=== PATIENT | female | born 1970 | race Caucasian/White ===

== ENCOUNTER 2019-09-06 11:38 | Outpatient (CLI) | payer OTHER, SELFPAY ==
--- NOTE | ~2019-09-06 | MM_ITS ---
EXAMINATION: MM screening [facility] BI w og HISTORY: Screening mammogram TECHNIQUE: Craniocaudal and mediolateral oblique 3-D tomosynthesis images were obtained and synthetic 2-D images were generated. CAD analysis was submitted and interpreted. COMPARISON: 05/22/2018, 01/09/2017, 08/24/2015, 08/17/2015 BREAST PARENCHYMAL COMPOSITION: There are scattered areas of fibroglandular density. FINDINGS: There is no evidence of suspicious mass, calcification, or architectural distortion to sugg est malignancy in either breast. There has been no suspicious interval change. IMPRESSION: 1. No mammographic evidence of malignancy. 2. Recommend routine screening mammography in one year. BI-RADS Category 1: Negative Reviewed, dictated and finalized at location A.
== END 2019-09-06 11:39 | disposition home or self-care (01) ==
LOC: ANHIMG 11:42
PROVIDERS: PCP Nurse Practitioner Adult Health; Visit Provider Nurse Practitioner Adult Health
DX: Z12.31 Encounter for screening mammogram for malignant neoplasm of breast (principal)
CPT/HCPCS: 77063; 77067

== ENCOUNTER 2020-01-20 12:58 | Outpatient (CLI) | payer OTHER, SELFPAY ==
--- NOTE | ~2020-01-20 | XR_ITS ---
EXAMINATION: XR wrist LT min 3V EXAM DATE: 01/20/2020 13:20 INDICATION: Initial encounter following injury, with pain of the left wrist. TECHNIQUE: Left wrist frontal, frontal with ulnar deviation, oblique and lateral projections obtained and reviewed. There is no prior study for comparison. FINDINGS: Left wrist scapholunate joint space is maintained. There are no acute left wrist fractures or dislocations identified. There is no subcutaneous gas. The soft tissue is unremarkable. There are no radiopaque foreign bodies. IMPRESSION: No acute osseous findings. Reviewed, dictated and finalized at location A. IMPRESSION: No acute osseous findings.
== END 2020-01-20 12:59 | disposition home or self-care (01) ==
PROVIDERS: PCP Nurse Practitioner Adult Health; Visit Provider Nurse Practitioner Adult Health
DX: S69.90XA Unspecified injury of unspecified wrist, hand and finger(s), initial encounter (principal); X58.XXXA Exposure to other specified factors, initial encounter
CPT/HCPCS: 73110

== ENCOUNTER 2020-08-05 07:44 | Outpatient (CLI) | payer OTHER, SELFPAY ==
[2020-08-05 08:35] LABS: Basophils Percent Auto 0.5 % (0.2-1.2); Eosinophils Absolute Auto 0.1 K/mm3 (0-0.3); Eosinophils Percent Auto 1.3 % (0-4.4); Immature Granulocyte Absolute 0.03 K/mm3 (0.00-0.031); Immature Granulocyte Percent A 0.4 % (0-0.5); Lymphocytes Absolute Auto 2.58 K/mm3 (0.9-3.2); Mean Corpuscular HGB Conc 34.1 g/dl (32-36); Mean Corpuscular Volume 87.8 fl (80-100); Mean Platelet Volume 9.9 fl (7.4-10.4); Monocytes Absolute Auto 0.6 K/mm3 (0.1-0.6); Monocytes Percent Auto 8.2 % (2.6-8.5); Neutrophils Absolute Auto 4.4 K/mm3 (1.3-6.7); Neutrophils Percent Auto 56.6 % (45.5-73.1); Platelet Count Result 236 k/mm3 (150-375); Red Blood Count 4.67 M/mm3 (4.2-5.4); Red Cell Distribution Width 12.6 % (11.5-14.5); White Blood Count 7.8 K/mm3 (4.5-10.0)
[2020-08-05 08:46] LABS: Alanine Aminotransferase 26 U/L (4-35); Albumin Level 4.1 g/dL (3.5-5.1); Alkaline Phosphatase 65 U/L (38-126); Anion Gap 6 mmol/L (8-16); Aspartate Amino Transferase 29 U/L (14-36); Bilirubin,Total 1.3 mg/dL (0.2-1.3); Blood Urea Nitrogen 13 mg/dL (7-17); Calcium 9.1 mg/dL (8.4-10.2); Carbon Dioxide 27 mmol/L (22-30); Chloride 105 mmol/L (98-107); Cholesterol 220 mg/dL (0-200); Estimated Glomerular Filt Rate > 60; Glucose 94 mg/dL (65-105); HDL Direct 51 mg/dL; Potassium 4.4 mmol/L (3.4-5.0); Sodium 138 mmol/L (137-145); Triglycerides 159 mg/dL (<150)
[2020-08-05 08:58] LABS: LDL Cholesterol Direct 144 mg/dL
== END 2020-08-05 07:45 | disposition home or self-care (01) ==
PROVIDERS: PCP Nurse Practitioner Adult Health; Visit Provider Nurse Practitioner Adult Health
DX: E03.9 Hypothyroidism, unspecified (principal); Z13.9 Encounter for screening, unspecified
CPT/HCPCS: 36415; 80053; 80061; 84443; 85025

== ENCOUNTER 2020-10-19 10:46 | Outpatient (CLI) | payer OTHER, SELFPAY ==
--- NOTE | ~2020-10-19 | MM_ITS ---
EXAMINATION: MM screening [facility] BI w og HISTORY: Screening mammogram TECHNIQUE: Craniocaudal and mediolateral oblique 3-D tomosynthesis images were obtained and synthetic 2-D images were generated. CAD analysis was submitted and interpreted. COMPARISON: 09/06/2019, , 01/09/2017 bilateral digital screening mammogram examinations BREAST PARENCHYMAL COMPOSITION: There are scattered areas of fibroglandular density. FINDINGS: There is a biopsy marker on the left; history of prior benign left breast biopsy in 2013. Stable fibroglandular asymmetry since prior examinations. There is no evidence of suspicious mass, ca lcification, or architectural distortion to suggest malignancy in either breast. There has been no high spicious interval change. IMPRESSION: 1. No mammographic evidence of malignancy. 2. Recommend routine screening mammography in one year. BI-RADS Category 2: Benign finding(s). Reviewed, dictated and finalized at location A.
== END 2020-10-19 10:47 | disposition home or self-care (01) ==
LOC: ANHIMG 10:49
PROVIDERS: PCP Nurse Practitioner Adult Health; Visit Provider Nurse Practitioner Adult Health
DX: Z12.31 Encounter for screening mammogram for malignant neoplasm of breast (principal)
CPT/HCPCS: 77063; 77067

== ENCOUNTER 2021-07-30 07:10 | Outpatient (CLI) | payer OTHER, SELFPAY ==
[2021-07-30 07:38] LABS: Basophils Percent Auto 0.4 % (0.2-1.2); Eosinophils Absolute Auto 0.1 K/mm3 (0-0.3); Eosinophils Percent Auto 1.2 % (0-4.4); Hematocrit 43.5 % (37.0-47.0); Hemoglobin 14.7 g/dL (12.0-15.0); Immature Granulocyte Absolute 0.04 K/mm3 (0.00-0.031); Immature Granulocyte Percent A 0.6 % (0-0.5); Lymphocytes Absolute Auto 2.31 K/mm3 (0.9-3.2); Lymphocytes Percent Auto 33.4 % (18.3-44.2); Mean Corpuscular HGB Conc 33.8 g/dl (32-36); Mean Corpuscular Hemoglobin 29.7 pg (26-34); Mean Corpuscular Volume 87.9 fl (80-100); Mean Platelet Volume 9.9 fl (7.4-10.4); Monocytes Absolute Auto 0.6 K/mm3 (0.1-0.6); Monocytes Percent Auto 8.2 % (2.6-8.5); Neutrophils Absolute Auto 3.9 K/mm3 (1.3-6.7); Neutrophils Percent Auto 56.2 % (45.5-73.1); Platelet Count Result 274 k/mm3 (150-375); Red Blood Count 4.95 M/mm3 (4.2-5.4); Red Cell Distribution Width 12.4 % (11.5-14.5); White Blood Count 6.9 K/mm3 (4.5-10.0)
[2021-07-30 09:36] LABS: Alanine Aminotransferase 25 U/L (4-35); Albumin Level 4.3 g/dL (3.5-5.1); Alkaline Phosphatase 68 U/L (38-126); Anion Gap 2 mmol/L (8-16); Aspartate Amino Transferase 28 U/L (14-36); Bilirubin,Total 1.6 mg/dL (0.2-1.3); Blood Urea Nitrogen 10 mg/dL (7-17); Calcium 9.3 mg/dL (8.4-10.2); Carbon Dioxide 30 mmol/L (22-30); Chloride 105 mmol/L (98-107); Cholesterol 211 mg/dL (0-200); Estimated Glomerular Filt Rate > 60; Glucose 99 mg/dL (65-110); HDL Direct 44 mg/dL; Potassium 4.5 mmol/L (3.4-5.0); Sodium 137 mmol/L (137-145); Triglycerides 211 mg/dL (<150)
[2021-07-30 09:47] LABS: LDL Cholesterol Direct 129 mg/dL
== END 2021-07-30 07:11 | disposition home or self-care (01) ==
LOC: ANHLAB 07:13
PROVIDERS: PCP Nurse Practitioner Adult Health; Visit Provider Nurse Practitioner Adult Health
DX: Z13.9 Encounter for screening, unspecified (principal)
CPT/HCPCS: 36415; 80053; 80061; 82607; 82746; 84443; 85025

== ENCOUNTER 2022-05-17 07:48 | Outpatient (CLI) | payer OTHER, SELFPAY ==
--- NOTE | ~2022-05-17 | MM_ITS ---
EXAMINATION: MM screening [facility] BI w og HISTORY: Screening TECHNIQUE: Craniocaudal and mediolateral oblique 3-D tomosynthesis images were obtained and synthetic 2-D images were generated. CAD analysis was submitted and interpreted. COMPARISON: Comparison to multiple prior studies sequentially, with oldest reviewed study dated 08/17. BREAST PARENCHYMAL COMPOSITION: Breast composed of scattered areas of fibroglandular density FINDINGS: There is no evidence of suspicious mass, calcification, or architectural distortion to sugg est malignancy in either breast. There has been no suspicious interval change. IMPRESSION: 1. No mammographic evidence of malignancy. 2. Recommend routine screening mammography in one year. BI-RADS Category 1: Negative Reviewed, dictated and finalized at location A. 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
== END 2022-05-17 07:49 | disposition home or self-care (01) ==
PROVIDERS: PCP Nurse Practitioner Adult Health; Visit Provider Nurse Practitioner Adult Health
DX: Z12.31 Encounter for screening mammogram for malignant neoplasm of breast (principal)
CPT/HCPCS: 77063; 77067

== ENCOUNTER 2022-08-09 07:26 | Outpatient (CLI) | payer OTHER, SELFPAY ==
[2022-08-09 10:00] LABS: Alanine Aminotransferase 27 U/L (6-35); Alkaline Phosphatase 58 U/L (38-126); Anion Gap 3 mmol/L (8-16); Aspartate Amino Transferase 25 U/L (14-36); Bilirubin,Total 1.1 mg/dL (0.2-1.3); Blood Urea Nitrogen 17 mg/dL (7-17); Calcium 8.8 mg/dL (8.4-10.2); Carbon Dioxide 30 mmol/L (22-30); Chloride 106 mmol/L (98-107); Cholesterol 200 mg/dL (0-200); Estimated Glomerular Filt Rate 59; Glucose 89 mg/dL (65-110); HDL Direct 47 mg/dL; Potassium 4.7 mmol/L (3.4-5.0); Sodium 139 mmol/L (137-145); Triglycerides 100 mg/dL (<150)
[2022-08-09 10:11] LABS: LDL Cholesterol Direct 106 mg/dL
== END 2022-08-09 07:27 | disposition home or self-care (01) ==
PROVIDERS: PCP Family Medicine; Visit Provider Family Medicine
DX: E03.9 Hypothyroidism, unspecified (principal); Z13.220 Encounter for screening for lipoid disorders
CPT/HCPCS: 36415; 80053; 80061; 84443

== ENCOUNTER 2023-10-15 09:38 | Outpatient (CLI) | payer OTHER, SELFPAY ==
[2023-10-15 19:22] LABS: Hemoglobin 15.3 g/dL (12.0-15.0); Mean Corpuscular HGB Conc 31.9 g/dl (32-36); Mean Corpuscular Hemoglobin 29.1 pg (26-34); Mean Corpuscular Volume 91.3 fl (80-100); Mean Platelet Volume 10.3 fl (7.4-10.4); Platelet Count Result 261 k/mm3 (150-375); Red Blood Count 5.26 M/mm3 (4.2-5.4); White Blood Count 6.3 K/mm3 (4.5-10.0)
[2023-10-15 19:52] LABS: Vitamin D 25 Hydroxy 18.4 ng/mL
[2023-10-15 20:25] LABS: Alanine Aminotransferase 23 U/L (6-35); Albumin Level 4.5 g/dL (3.5-5.1); Alkaline Phosphatase 63 U/L (38-126); Anion Gap 6 mmol/L (4-12); Aspartate Amino Transferase 65 U/L (14-36); Bilirubin,Total 1.3 mg/dL (0.2-1.3); Blood Urea Nitrogen 16 mg/dL (7-17); Calcium 9.4 mg/dL (8.4-10.2); Carbon Dioxide 25 mmol/L (22-30); Chloride 105 mmol/L (98-107); Cholesterol 218 mg/dL (0-200); Estimated Glomerular Filt Rate > 60; Glucose 80 mg/dL (65-110); HDL Direct 62 mg/dL; Potassium 4.5 mmol/L (3.4-5.0); Sodium 136 mmol/L (137-145); Triglycerides 143 mg/dL (<150)
[2023-10-15 20:36] LABS: LDL Cholesterol Direct 127 mg/dL
== END 2023-10-15 09:39 | disposition home or self-care (01) ==
PROVIDERS: PCP Nurse Practitioner Adult Health; Visit Provider Nurse Practitioner Adult Health
DX: E03.9 Hypothyroidism, unspecified (principal); E55.9 Vitamin D deficiency, unspecified; Z13.9 Encounter for screening, unspecified
CPT/HCPCS: 36415; 80053; 80061; 82306; 84443; 85027

== ENCOUNTER 2023-10-25 15:10 | Outpatient (CLI) | payer OTHER, SELFPAY ==
--- NOTE | ~2023-10-25 | US_ITS ---
EXAMINATION: US pelvic complete DATE: 10/25/2023 15:46 INDICATION: Excessive and frequent menstruation. TECHNIQUE: Multiple transabdominal sonographic images of the pelvis were obtained. COMPARISON: None. FINDINGS: The uterus measures 9.5 x 5.4 x 6.4 cm. There is no free fluid in the pelvis. The endometrial complex measures 6 mm in thickness. The right ovary measures 5.2 x 4.0 x 4.3 cm. There is a 3.0 cm cyst in r ight ovary. The left ovary measures 3.4 x 1.9 x 3.0 cm. There is normal vascular flow in the ovaries. IMPRESSION: 1. 3.0 cm cyst in right ovary, likely a follicular cyst. Reviewed, dictated and finalized at location E.
== END 2023-10-25 15:11 | disposition home or self-care (01) ==
LOC: ANHIMG 15:12
PROVIDERS: PCP Nurse Practitioner Adult Health; Visit Provider Nurse Practitioner Adult Health
DX: N92.0 Excessive and frequent menstruation with regular cycle (principal); N83.01 Follicular cyst of right ovary
CPT/HCPCS: 76856

== ENCOUNTER 2024-01-31 01:02 | Day surgery (SDC) | payer OTHER, SELFPAY ==
[2024-01-18 10:26] VITALS: BMI 34.8
[2024-01-31 06:52] VITALS: BP 129/68; PULSE 63; RESP 18; TEMP 36.1; O2SAT 98; BMI 35.6
[2024-01-31] MEDS: LACTATED RINGERS 1,000 ML 150 ML IV CONT (07:06)
--- NOTE | 2024-01-31 07:48 | PM.IMHP ---
H&P: HPI History of Present Illness Date/Time: 01/31/24 07:48 Chief Complaint: screening for colorectal cancer Narrative: this is a 53-year-old woman who presents for her 1st colonoscopy. She denies any family history of colon cancer. She has noted blood a couple times when wiping but no blood mixed in with the stool. She has had an appendectomy in the past but denies any other abdominal surgeries. Review of Systems Review of Systems: All systems reviewed & are unremarkable except as noted in HPI and below Constitutional: Constitutional: Denies chills, Denies fever(s), Denies headache(s) and Denies weight loss Eyes: Eyes: Denies change in vision ENT: Denies dizziness, Denies headache(s), Denies neck mass and Denies throat swelling Cardiovascular: Cardiovascular: Denies chest pain, Denies lightheadedness and Denies dyspnea Respiratory: Respiratory: Denies cough, Denies dyspnea and Denies wheezing Gastrointestinal: Gastrointestinal: Denies abdominal pain, Denies change in bowel habits, Denies nausea and Denies vomiting Genitourinary: Genitourinary: Denies hematuria and Denies dysuria Musculoskeletal: Musculoskeletal: Reports as per HPI Integumentary/Breasts: Skin/Breast: Reports as per HPI Neurologic: Denies dizziness and Denies headache(s) Allergic/Immunologic: Allergic/Immunologic: Denies throat swelling and Denies wheezing PMF Past Medical History Medical History Headache History of torn meniscus of left knee Vitamin D deficiency Surgical History Surgical History (Updated 11/05/23 @ 09:03 by Julieta Adam CMA) H/O knee surgery History of appendectomy Family History Family History Mother Thyroid condition Heart problem Sibling Diabetes mellitus Thyroid condition Social History Social History (Updated 11/05/23 @ 09:04 by Julieta Adam CMA) Smoking status: Never smoker Alcohol intake: never Alcohol use details: social Substance use: never Substance use type: does not use Do You Feel Safe in your Home?: Yes Lack of Transportation: No Lack of Food: Never True Current Housing: I Have Housing Concerned About Future Housing: No Difficulty Paying Gas/Electric Bills: No Difficulty Paying for Meds: No Currently Unemployed: No Education: Bachelor's Degree Difficulty w/ Childcare or Family Care: No Living arrangements: with family Occupation/Education: occupation Gender identity (if verbalized by the patient): Female Spiritual care concerns: No Meds Home Medications and Allergies Home Medications Medication Instructions Recorded Confirmed Type levothyroxine 75 mcg tablet 75 mcg PO DAILY 10/04/21 01/31/24 History multivitamin 1 tablet PO DAILY 10/15/23 01/31/24 History rizatriptan 10 mg disintegrating 10 mg PO PRN PRN Migraine Headache 10/15/23 01/31/24 History tablet vitamin B complex 1 cap PO DAILY 10/15/23 01/31/24 History cholecalciferol (vitamin D3) 1,250 1,250 mcg PO WEEKLY #12 caps 10/16/23 01/31/24 Rx mcg (50,000 unit) capsule norethindrone (contraceptive) 0.35 See Rx Instructions .Route 01/24/24 01/31/24 Rx mg tablet .COMPLEX #84 tabs Allergies Allergy/AdvReac Type Severity Reaction Status Date / Time Sulfa (Sulfonamide Allergy Unknown HIVES Verified 01/31/24 06:51 Antibiotics) Flu Vaccine Allergy Unknown Unknown Uncoded 01/31/24 06:51 Vital Signs Vital Signs - 24 hr 01/31/24 06:52 Temperature 36.1 C L Pulse Rate 63 Respiratory Rate 18 Blood Pressure 129/68 Pulse Oximetry 98 Oxygen Delivery Room Air Exam Const: General: no acute distress and alert Orientation/consciousness: patient oriented x3 HENMT: Head: normocephalic and atraumatic Ears: hearing grossly normal bilaterally Face/Nose/Sinus: Normal nares present Mouth: Yes Normal oral and palatal mucosa present Eyes: Periorbital:
--- NOTE | 2024-01-31 07:51 | WPDANESEPPF ---
Anes - Initial Pre Proc Eval Procedure: Operation Date: 01/31/24 08:00 Proposed Procedures p Screening Colonoscopy - Javad Mason DO Date/Time: 01/31/24 07:51 Surgeon: Javad Mason DO Pre Op Diagnosis: Neoplasm Screening Patient Data Age: 53 Gender: F Height: 1.73 m Weight: 106.3 kg Last Vital Signs Temp 97.0 F L 01/31/24 06:52 Pulse 63 01/31/24 06:52 Resp 18 01/31/24 06:52 BP 129/68 01/31/24 06:52 Pulse Ox 98 01/31/24 06:52 O2 Del Method Room Air 01/31/24 06:52 Allergies Allergy/AdvReac Type Severity Reaction Status Date / Time Sulfa (Sulfonamide Allergy Unknown HIVES Verified 01/31/24 06:51 Antibiotics) Flu Vaccine Allergy Unknown Unknown Uncoded 01/31/24 06:51 Home Medications Medication Instructions Recorded Confirmed Type levothyroxine 75 mcg tablet 75 mcg PO DAILY 10/04/21 01/31/24 History multivitamin 1 tablet PO DAILY 10/15/23 01/31/24 History rizatriptan 10 mg disintegrating 10 mg PO PRN PRN Migraine Headache 10/15/23 01/31/24 History tablet vitamin B complex 1 cap PO DAILY 10/15/23 01/31/24 History cholecalciferol (vitamin D3) 1,250 1,250 mcg PO WEEKLY #12 caps 10/16/23 01/31/24 Rx mcg (50,000 unit) capsule norethindrone (contraceptive) 0.35 See Rx Instructions .Route 01/24/24 01/31/24 Rx mg tablet .COMPLEX #84 tabs Patient hx anesthesia problems: none Family hx anesthesia problems: none Results Review: All pre-operative results and documents have been reviewed as part of the pre-operative evaluation. [facility] Past Medical History Medical History Headache History of torn meniscus of left knee Vitamin D deficiency Surgical History Surgical History (Updated 11/05/23 @ 09:03 by Julieta Adam CMA) H/O knee surgery History of appendectomy Family History Family History Mother Thyroid condition Heart problem Sibling Diabetes mellitus Thyroid condition Social History Social History (Updated 11/05/23 @ 09:04 by Julieta Adam CMA) Smoking status: Never smoker Alcohol intake: never Alcohol use details: social Substance use: never Substance use type: does not use Do You Feel Safe in your Home?: Yes Lack of Transportation: No Lack of Food: Never True Current Housing: I Have Housing Concerned About Future Housing: No Difficulty Paying Gas/Electric Bills: No Difficulty Paying for Meds: No Currently Unemployed: No Education: Bachelor's Degree Difficulty w/ Childcare or Family Care: No Living arrangements: with family Occupation/Education: occupation Gender identity (if verbalized by the patient): Female Spiritual care concerns: No Anes - Eval Final PreProcedure Day of Procedure 01/31/24 07:51 Patient weight: obese Heart: regular rate and rhythm Lungs: clear to auscultation Airway: Mallampati scale class II Neurological: alert and oriented Last oral intake: >/= 8 hours ASA classification: II Emergent: no Anesthetic plan: proceed Anesthesia type and monitoring: general GIVS and standard monitoring Results Review: All pre-operative results and documents have been reviewed as part of the pre-operative evaluation. Informed Consent: The patient's anesthetic plan and its attendant risks and benefits were discussed with the patient/family/POA. Questions were solicited and answers provided to the satisfaction of the patient/family/POA.
[2024-01-31 08:17] VITALS: BP 106/65; PULSE 61; RESP 22; O2SAT 97
[2024-01-31 08:18] LABS: BEDSIDEPREGUCG Negative
[2024-01-31 08:27] VITALS: BP 111/72; PULSE 64; RESP 18; O2SAT 100
[2024-01-31 08:37] VITALS: BP 118/81; PULSE 60; RESP 20; O2SAT 100
== END 2024-01-31 08:45 | disposition home or self-care (01) ==
PROVIDERS: PCP Nurse Practitioner Adult Health; Visit Provider Surgery
PROC: 0DJD8ZZ Inspection of Lower Intestinal Tract, Via Natural or Artificial Opening Endoscopic (ICD-10-PCS; CPT 45378; principal; 2024-01-31 08:00)
DX: Z12.11 Encounter for screening for malignant neoplasm of colon (principal); E55.9 Vitamin D deficiency, unspecified; E66.9 Obesity, unspecified; Z68.35 Body mass index [BMI] 35.0-35.9, adult; Z98.890 Other specified postprocedural states; Z82.49 Family history of ischemic heart disease and other diseases of the circulatory system
CPT/HCPCS: 45378; J2704; J7120

== ENCOUNTER 2024-04-10 15:44 | Outpatient (CLI) | payer OTHER, SELFPAY ==
--- NOTE | ~2024-04-10 | MM_ITS ---
EXAMINATION: MM screening [facility] BI w og HISTORY: Screening TECHNIQUE: Craniocaudal and mediolateral oblique 3-D tomosynthesis images were obtained and synthetic 2-D images were generated. CAD analysis was submitted and interpreted. COMPARISON: Examination was compared with multiple prior studies, performed most recently on 05/14/20 and dating back to 09/06/2019 BREAST PARENCHYMAL COMPOSITION: There are scattered areas of fibroglandular density. FINDINGS: Microclip within the lower inner left breast, consistent with patient's history. Stable parenchymal pattern without suspicious microcalcifications, architectural distortion, discrete masses or significant asymmetry. IMPRESSION: 1. No mammographic evidence of malignancy. 2. Recommend routine screening mammography in one year. BI-RADS Category 2: Benign finding(s). Reviewed, dictated and finalized at location A.
== END 2024-04-10 15:45 | disposition home or self-care (01) ==
LOC: ANHIMG 15:45
PROVIDERS: PCP Nurse Practitioner Adult Health; Visit Provider Nurse Practitioner Adult Health
DX: Z12.31 Encounter for screening mammogram for malignant neoplasm of breast (principal)
CPT/HCPCS: 77063; 77067

== ENCOUNTER 2024-04-14 14:41 | Outpatient (CLI) | payer OTHER, SELFPAY ==
--- NOTE | ~2024-04-14 | XR_ITS ---
EXAMINATION: XR hip RT min 2V DATE: 04/14/2024 14:59 INDICATION: Right hip pain. TECHNIQUE: 2 views of right hip were obtained. COMPARISON: None. FINDINGS: Alignment is normal. No fracture. Right hip joint space is normal. IMPRESSION: 1. Normal right hip. Reviewed, dictated and finalized at location A. IMPRESSION: 1. Normal right hip.
== END 2024-04-14 14:42 | disposition home or self-care (01) ==
PROVIDERS: PCP Nurse Practitioner Adult Health; Visit Provider Nurse Practitioner Adult Health
DX: M25.551 Pain in right hip (principal); E03.9 Hypothyroidism, unspecified
CPT/HCPCS: 36415; 73502; 84443

== ENCOUNTER 2024-07-21 15:30 | Outpatient (RCR) | payer OTHER, SELFPAY ==
--- NOTE | 2024-05-23 16:23 | OPREHPOC ---
Outpatient Therapy Plan of Care This is a Multidisciplinary Plan of Care that may contain components documented by all disciplines (PT, OT, and ST.) PT Problem 1 PT Problem #1 Knowledge Deficit PT Goal 1 Goal / Goal Update *indep with HEP Target Visit 6 PT Problem 2 PT Problem #2 Pain PT Goal 1 Goal / Goal Update 1* pt report pain rating at worst of 4/10 Target Visit 6 PT Problem 3 PT Problem #3 Impaired Flexibility PT Goal 1 Goal / Goal Update increase flexibility of R hip to improve symmetry R/L balance with activity 1* anterior hip/quad length with prone knee flexion 130' 2* prone hip IR, with knee flexion 90', 55' Target Visit 6 PT Problem 4 PT Problem #4 Impaired Strength PT Goal 1 Goal / Goal Update further assessment of her running posture and positioning Target Visit 6
--- NOTE | 2024-05-23 16:23 | PTOPEVAL1 ---
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 Reports an increase with running, but she is not doing any more than she had been doing with fitness activity. LE Functional scale rating of 10% limit in activity. She is frustrated with the R hip pain and very motivated with her fitness activities. With the evaluation: R hip pain with supine hip flexion and ER motions at end range; tightness over R anterior hip/quad and prone IR motions; no tenderness with palpation; hip testing negative; decrease pain with supine R leg pull. Skilled PT services are indicated for treatment of R hip--? impingement syndrome or overuse syndrome ; modalities PRN for pain, therapeutic exercises to increase flexibility and stability to R hip joint with education for HEP and pain control. Plan of Care Interventions Electrical Stimulation,Hot Pack/Cold Pack,Manual Therapy,Neuro Re-education,Patient Education,Therapeutic Activities,Therapeutic Exercise,Ultrasound,Other Other Interventions dry needling, taping PT Services Indicated Yes Treatment Frequency and 1-2x/wk for 6 visits Duration These treatments will address the objective and functional deficits as defined above. The patient will be advanced safely and appropriately in order for the patient to progress towards his/her prior level of function. Additional exercises will be introduced and as well as a comprehensive home exercise program upon discharge, if needed, ?to ensure carryover of functional gains achieved in the clinic. This treatment plan has been reviewed and agreement upon by the patient.
--- NOTE | 2024-06-16 15:40 | OPREHPOC ---
Outpatient Therapy Plan of Care This is a Multidisciplinary Plan of Care that may contain components documented by all disciplines (PT, OT, and ST.) PT Problem 1 PT Problem #1 Knowledge Deficit PT Goal 1 Goal / Goal Update *indep with HEP 06-16-24 progress goal met continue towards goal to progress HEP and education Target Visit 11 PT Problem 2 PT Problem #2 Pain PT Goal 1 Goal / Goal Update 1* pt report pain rating at worst of 4/10 06-16-24 progress goal not met, improved to 6/10 continue towards goal Target Visit 11 PT Problem 3 PT Problem #3 Impaired Flexibility PT Goal 1 Goal / Goal Update increase flexibility of R hip to improve symmetry R/L balance with activity 1* anterior hip/quad length with prone knee flexion 130' 2* prone hip IR, with knee flexion 90', 55' 06-16-24 progress goals improved, but not met continue towards goals Target Visit 11 PT Problem 4 PT Problem #4 Impaired Strength PT Goal 1 Goal / Goal Update further assessment of her running posture and positioning 06-16-24 progress goal met continue towards goal ADD: * single leg PF on L x 10 reps with good PF ROM and stability * single leg standing L x 40 seconds with good stability Target Visit 11
--- NOTE | 2024-06-16 15:40 | PTOPPROG ---
Assessment and note entered by Vikki Lorenzo, PT PROGRESS REPORT Assessment Status Progress ICD-10 Condition Codes (PT) Pain in right hip M25.551 Onset October 2023 Subjective Information was able to run yesterday 4 miles and did OK--hip did not hurt; have been doing all of the exercises at stretches at home; want to continue therapy to get the R hip not to hurt; PAIN: rating of 0-6/10 in the past week; R lateral hip- pinch; pinch occurs about 2x/day- last few seconds only; increase pain: rolled over in bed, rotate hip out Assessment PT Clinical Summary Melissa has received 6 PT sessions. Compared to the initial evaluation: pain from 0-8/10 to 0-6/10; now reports the pinch in her R hip occurs about 2x/day, lasting few seconds; the pinching occurs with hip ER motion; self assessment with LE functional scale rating from 10% to 5% limitation in activity level; the flexibility of her R hip has improved over anterior hip/quad with prone knee flexion from 110' to 125' and prone hip IR from 35' to 40'; with the improved flexibility, she has more symmetry R/ L with her ROM; She has weakness of L knee and ankle, causing imbalance of strength with running and activity: single leg standing time on R is 110 seconds and L 32 seconds- with decreased stability; single leg PF on R is 11 with good PF motion/ L is 4 with slight PF and unstable. The goals were partially met. Continue PT treatment. Plan of Care Interventions Electrical Stimulation,Hot Pack/Cold Pack,Manual Therapy,Neuro Re-education,Patient/Caregiver Education,Therapeutic Activities,Therapeutic Exercise,Ultrasound,Other Other Interventions dry needling, taping PT Services Indicated Yes Treatment Frequency and 1x/wk for 5 visits Duration These treatments will address the objective and functional deficits as defined above. The patient will be advanced safely and appropriately in order for the patient to progress towards his/her prior level of function. Additional exercises will be introduced and as well as a comprehensive home exercise program upon discharge, if needed, ?to ensure carryover of functional gains achieved in the clinic. This treatment plan has been reviewed and agreement upon by the patient.
--- NOTE | 2024-07-21 16:25 | PTOPDC ---
Assessment and note entered by Vikki Lorenzo, PT Assessment Status Discharge ICD-10 Condition Codes (PT) Pain in right hip M25.551 Onset October 2023 Subjective Information feel like hip pain is about the same; been doing all the exercises and stretching; does fitness exercises, run, jog or walk with fitness classes- every day; agree with discharge from PT and continue HEP, stretching. Reported Pain Level Pain Score Self Report Additional Pain Score Comments pain range in the past week 0-8/10; pinch lateral hip, buttock area; get a pinch in her R hip about 2x/day increase pain: with running after 3 miles some pain with getting comfortable to fall asleep- tylenol helps Assessment PT Clinical Summary Melissa has received 11 PT sessions. Compared to the last reassessment: pain from 0-6/10 to 0-8/10; increase flexibility of R hip IR, ER and quad/anterior hip--now R/L with equal motion; increase strength of L and R single leg standing and single leg PF; education completed for HEP and body mechanics and position with running; importance of stretching. The goals were achieved, except pain rating at the worst. Discharge PT and she is to continue with her HEP and monitor body positioning with fitness activity Plan of Care PT Services Indicated No
== END 2024-07-22 09:08 | disposition home or self-care (01) ==
LOC: ANHPT 15:30
PROVIDERS: PCP Nurse Practitioner Adult Health; Visit Provider Nurse Practitioner Adult Health
DX: M25.551 Pain in right hip (principal)
CPT/HCPCS: 97110; 97112; 97140; 97161; 97530

== ENCOUNTER 2024-10-16 10:01 | Outpatient (CLI) | payer OTHER, SELFPAY ==
--- OUTSIDE RECORDS SUMMARY | 2024-10-16 10:41 | XMS_ITS | Clinical Summary ---
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 May repeat at 2 hour intervals. Not to exceed 30 mg in 24 hours. 18 Tablet 1 11/23/2021 6:43 PM CDT 11/17/2021 Active cholecalciferol 1,250 mcg (50,000 unit) Capsule Take one capsule (1250 mcg) by mouth weekly 12 Capsule 3 07/25/2024 3:42 PM FINISHED GOODS INSPECTOR 10/16/2023 Active methylPREDNISol one (MEDROL DOSPACK) 4 mg Tablets, Dose Pack TAKE DIRECTED ON PACKAGE. 21 Each 10/23/2023 6:48 PM CDT 10/23/2023 Active norethindrone, Contraceptive, 0.35 mg Tablet Take 1 Tablet by mouth daily. 84 Tablet 3 07/25/2024 3:42 PM FINISHED GOODS INSPECTOR 01/24/2024 Active valACYclovir (VALTREX) 1 gram tablet Take 2 Tablets (2,000 mg) by mouth every 12 hours as needed for cold sore for 1 day 4 Tablet 1 06/06/2024 5:35 PM FINISHED GOODS INSPECTOR 06/06/2024 Active Encounters Date Type Department Care Team Description 09/09/2024 External Device Data [facility] Provider, Abstract 09/09/2024 External Device Data [facility] Provider, Abstract from Last 3 Months Social History Tobacco Use Types Packs/Day Years Used Date Smoking Tobacco: Never Assessed Comments Unknown Sex and Gender Information Value Date Recorded Sex Assigned at Not on file Legal Sex Female 3:27 PM CDT Gender Identity Not on file Sexual Orientation Not on file Plan of Treatment Health Maintenance Due Date Last Done Comments DTAP/TDAP/TD VACCINES (1 - Tdap) 1991 HEPATITIS B VACCINES (1 of 3 - 19+ 3-dose series) 1991 HPV/Cotest (21-29) 1993 CERVICAL CANCER SCREENING 2002 HPV/Cotest (30-65) 2002 PAP SMEAR 2002 BREAST CANCER SCREENING 2012 COLORECTAL SCREENING 2017 Colorectal Cancer Screening 2017 FIT-DNA Q 3 years 2017 FIT/FOBT Q 1 year 2017 Flex Sig/CT Colonography Q 5 years 2017 ZOSTER VACCINE (1 of 2) 2022 INFLUENZA VACCINE (#1) 2024 PNEUMOCOCCAL VACCINE 0-49 YEARS Aged Out No longer eligible based on patient's age to complete this topic Insurance RX [facility] [employer] ([employer]) [facility]
[2024-10-16 12:55] LABS: Hematocrit 45.7 % (37.0-47.0); Mean Corpuscular HGB Conc 32.8 g/dl (32-36); Mean Corpuscular Hemoglobin 29.2 pg (26-34); Mean Corpuscular Volume 89.1 fl (80-100); Mean Platelet Volume 10.5 fl (7.4-10.4); Platelet Count Result 250 k/mm3 (150-375); Red Blood Count 5.13 M/mm3 (4.2-5.4); Red Cell Distribution Width 12.6 % (11.5-14.5)
[2024-10-16 13:59] LABS: Alanine Aminotransferase 30 U/L (6-35); Albumin Level 4.2 g/dL (3.5-5.1); Alkaline Phosphatase 61 U/L (38-126); Anion Gap 6 mmol/L (4-12); Aspartate Amino Transferase 52 U/L (14-36); Bilirubin,Total 1.5 mg/dL (0.2-1.3); Blood Urea Nitrogen 21 mg/dL (7-17); Carbon Dioxide 28 mmol/L (22-30); Chloride 101 mmol/L (98-107); Cholesterol 196 mg/dL (0-200); Estimated Glomerular Filt Rate 60; Glucose 88 mg/dL (65-110); HDL Direct 49 mg/dL; Potassium 4.3 mmol/L (3.4-5.0); Sodium 135 mmol/L (137-145); Triglycerides 145 mg/dL (<150)
[2024-10-16 14:10] LABS: LDL Cholesterol Direct 108 mg/dL
[2024-10-16 20:29] LABS: Vitamin D 25 Hydroxy 55.6 ng/mL
== END 2024-10-16 10:02 | disposition home or self-care (01) ==
LOC: ANHGOSHLAB 10:01
PROVIDERS: PCP Nurse Practitioner Adult Health; Visit Provider Nurse Practitioner Adult Health
DX: Z13.9 Encounter for screening, unspecified (principal); E55.9 Vitamin D deficiency, unspecified
CPT/HCPCS: 36415; 80053; 80061; 82306; 84443; 85027

== ENCOUNTER 2025-04-28 15:38 | Outpatient (CLI) | payer OTHER, SELFPAY ==
--- NOTE | ~2025-04-28 | MM_ITS ---
EXAMINATION: MM screening [facility] BI w og HISTORY: Screening TECHNIQUE: Craniocaudal and mediolateral oblique 3-D tomosynthesis images were obtained and synthetic 2-D images were generated. CAD analysis was submitted and interpreted. COMPARISON: Comparison to multiple prior studies sequentially, with oldest reviewed study dated 01/09/2017. BREAST PARENCHYMAL COMPOSITION: Not dense: There are scattered areas of fibroglandular density. FINDINGS: There is no evidence of suspicious mass, calcification, or architectural distortion to suggest malignancy in either breast. There has been no suspicious interval change. IMPRESSION: 1. No mammographic evidence of malignancy. 2. Recommend routine screening mammography in one year. BI-RADS Category 1: Negative Reviewed, dictated and finalized at location B.
--- OUTSIDE RECORDS SUMMARY | 2025-04-28 17:34 | XMS_ITS | Clinical Summary ---
Author Organization [facility] [place] Address [address] [facility] [address] Attn: Epic Prelude ADT ALEXANDER VALENTINO [id number] Care Team Providers Care Entry Manager Name Role Phone Unavailable Primary Care Provider Unavailabl e Allergies No known active allergies Medications rizatriptan (Maxalt-PULL OVER MACHINE OPERATOR) 10 mg Tablet, Rapid Dissolve Dissolve one tablet by mouth once daily. May repeat at 2 hour intervals. Not to exceed 30 mg in 24 hours. 18 Tablet 1 11/23/2021 6:43 PM CDT 11/18/19 22 Active methylPREDNISol one (MEDROL DOSPACK) 4 mg Tablets, Dose Pack TAKE DIRECTED ON PACKAGE. 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 12 Capsule 3 04/22/2025 6:16 PM CDT 10/21/19 25 Active hydrocortisone acetate (ANUSOL-HC) 25 mg Suppository Insert 1 suppository rectally once a day at bedtime 12 Suppository 1 10/31/2024 6:43 PM CDT 10/24/19 25 Active norethindrone, Contraceptive, (Megha) 0.35 mg Tablet Take 1 Tablet by mouth daily. 28 Tablet 03/23/2025 2:06 PM CDT 03/23/20 25 Active Social History Tobacco Use Types Packs/Day Years [...] (1 of 3 - 19+ 3-dose series) 10/1990 HPV/Cotest (21-29) 1993 CERVICAL CANCER SCREENING 2002 HPV/Cotest (30-65) 2002 PAP SMEAR 2002 BREAST CANCER SCREENING 2012 COLORECTAL SCREENING 2017 Colorectal Cancer Screening 2017 FIT-DNA Q 3 years 2017 FIT/FOBT Q 1 year 2017 Flex Sig/CT Colonography Q 5 years 2017 ZOSTER VACCINE (1 of 2) 2022 INFLUENZA VACCINE (#1) 2025 Insurance RX [facility] [employer] ([employer]) [facility]
== END 2025-04-28 15:39 | disposition home or self-care (01) ==
PROVIDERS: PCP Nurse Practitioner Adult Health; Visit Provider Nurse Practitioner Adult Health
DX: Z12.31 Encounter for screening mammogram for malignant neoplasm of breast (principal)
CPT/HCPCS: 77063; 77067